=== PATIENT | male | born 1935 | race Caucasian/White ===

== ENCOUNTER 2018-09-28 12:29 | Emergency (ER) | payer MEDICARE ==
[2018-09-28 12:48] LABS: #Basophils 0.1 thou/uL (0.0-0.2); #Eosinphils 0.1 thou/uL (0.0-0.7); #Lymphocytes 1.7 thou/uL (1.20-3.40); #Monocytes 0.4 thou/uL (0.11-0.59); #Neutrophils 4.5 thou/uL (1.40-6.50); %Eosinophils 1.7 % (0.0-10.0); %Lymphocytes 24.8 % (21.0-51.0); %Monocytes 5.7 % (0.0-10.0); %Neutrophils 66.9 % (42.0-75.0); Hemoglobin 13.2 g/dL (14.0-18.0); Mean Corpuscular HGB CONC 32.8 g/dL (32.0-36.0); Mean Corpuscular Hemoglobin 32.3 pg (27.0-31.0); Mean Corpuscular Volume 98.4 fL (78.0-98.0); Mean Platelet Volume 7.6 fL (7.4-10.4); Platelet Count 196 thou/uL (130-400); RBC Distribution Width 12.7 % (11.5-14.5); Red Blood Cell (RBC) Count 4.08 mill/uL (4.70-6.10); White Blood Cell (WBC) Count 6.8 thou/uL (4.8-10.8)
--- NOTE | 2018-09-28 12:53 | RAD ---
Exam: Chest one view HISTORY:Palpitation Comparison: 02/23/2016 FINDINGS: Cardiac silhouette:Normal heart size. Sternotomy wires are noted. Pulmonary vessels: Normal Costophrenic angles: Clear LUNGS: No masses or consolidation. Chronic changes of the lung parenchyma are identified. Pneumothorax: None Osseous abnormalities: None IMPRESSION: No acute cardiopulmonary process.
[2018-09-28 13:10] LABS: ALT (SGPT) 15 U/L (8-55); AST (SGOT) 15 U/L (5-34); Albumin 4.4 g/dL (3.4-4.8); Alkaline Phosphatase 83 U/L (40-150); Anion Gap 13 mmol/L (10-20); BUN (Urea Nitrogen) 27 mg/dL (8.4-25.7); Bilirubin, Total 0.5 mg/dL (0.2-1.2); Calc. Creatinine Clearance 0 mL/min (70-130); Calcium 9.6 mg/dL (7.8-10.44); Carbon Dioxide 27 mmol/L (23-31); Chloride 103 mmol/L (98-107); Estimated GFR-MDRD 65; Globulin 3.2 g/dL (2.4-3.5); Glucose 149 mg/dL (83-110); Potassium 4.4 mmol/L (3.5-5.1); Protein, Total 7.6 g/dL (5.8-8.1); Sodium 139 mmol/L (136-145)
== END 2018-09-28 15:20 | disposition home or self-care (01) ==
LOC: ERS 12:29
DX: E86.0 Dehydration (principal); R00.2 Palpitations; I25.2 Old myocardial infarction; E11.9 Type 2 diabetes mellitus without complications; Z79.4 Long term (current) use of insulin; Z79.82 Long term (current) use of aspirin; Z79.899 Other long term (current) drug therapy
CPT/HCPCS: 71045; 80053; 84484; 85025; 93005; 94760; 96360; 96361

== ENCOUNTER 2018-10-23 09:34 | Day surgery (SDC) | payer MEDICARE ==
[2018-10-22 12:25] VITALS: BMI 26.5
[2018-10-23] MEDS ORDERED: Heparin 10,000 UNITS/1 ML VIAL ONE (09:37)
[2018-10-23 10:25] LABS: #Eosinphils 0.1 thou/uL (0.0-0.7); #Lymphocytes 1.3 thou/uL (1.20-3.40); #Monocytes 0.3 thou/uL (0.11-0.59); #Neutrophils 2.8 thou/uL (1.40-6.50); %Basophils 0.4 % (0.0-1.0); %Eosinophils 1.8 % (0.0-10.0); %Lymphocytes 29.5 % (21.0-51.0); %Monocytes 7.4 % (0.0-10.0); Hemoglobin 12.1 g/dL (14.0-18.0); Mean Corpuscular HGB CONC 32.6 g/dL (32.0-36.0); Mean Corpuscular Hemoglobin 32.5 pg (27.0-31.0); Mean Corpuscular Volume 99.7 fL (78.0-98.0); Mean Platelet Volume 7.3 fL (7.4-10.4); Platelet Count 165 thou/uL (130-400); RBC Distribution Width 12.6 % (11.5-14.5); Red Blood Cell (RBC) Count 3.71 mill/uL (4.70-6.10); White Blood Cell (WBC) Count 4.6 thou/uL (4.8-10.8)
[2018-10-23 10:31] LABS: INR-International Normal Ratio 1.2; PTT 36.8 SEC (22.9-36.1); Prothrombin Time 15.5 SEC (12.0-14.7)
[2018-10-23 10:48] LABS: Anion Gap 10 mmol/L (10-20); BUN (Urea Nitrogen) 17 mg/dL (8.4-25.7); Calc. Creatinine Clearance 70 mL/min (70-130); Calcium 9.2 mg/dL (7.8-10.44); Carbon Dioxide 28 mmol/L (23-31); Chloride 105 mmol/L (98-107); Estimated GFR-MDRD 75; Glucose 186 mg/dL (83-110); Potassium 4.3 mmol/L (3.5-5.1); Sodium 139 mmol/L (136-145)
[2018-10-23] MEDS ORDERED: Lidocaine 1% (PF) 30 ML VIAL ONE (10:49)
[2018-10-23] MEDS ORDERED: Fentanyl 250 MCG/5 ML VIAL ONE (10:50)
[2018-10-23] MEDS ORDERED: Propofol 1,000 MG/100 ML VIAL IV ONE (10:50)
[2018-10-23] MEDS ORDERED: DOPamine 400 MG/D5W 250 ML 250 ML ONE (11:31)
--- NOTE | 2018-10-23 12:43 | ECHO ---
DATE OF SERVICE: 10/23/18 REFERRING PHYSICIAN: Dr. Ida Moctezuma REASON FOR PROCEDURE: The patient is an 83-year-old gentleman with history of constant atrial flutter. Underwent CTA ablation in February 2016 with recurrent atrial flutter. Has just been started on anticoagulation here for CARMINE to rule out intracardiac clots. PROCEDURE: The patient received Propofol by Anesthesia specialist. After adequate level of sedation achieved, a standard transesophageal echocardiogram probe was passed into the esophagus without difficulty. Patient tolerated the procedure well, no complications noted. RESULTS: Left atrium is moderately enlarged about 5.4 cm in horizontal diameter. The left atrial appendage well visualized contains no clots. The left appendage velocities of about 30 to 50 cm per second. Four out of four pulmonary veins were clearly visualized. The left ventricular systolic function is preserved. The mitral valve has mild regurgitation. Tricuspid valve also has mild regurgitation. No aortic regurgitation is seen. Three leaflets visualized. No stenosis is noted. The pulmonary valve is borderline visualized and appears to be normal. Pericardial space without effusion. The visualized portion of ascending and descending aorta without aneurysm, dissection or significant atheroma. Interatrial septal is with minor communication via a tiny PFO. Color Flow is visible in between the flap and roof of the left atrium only left to right. CONCLUSION: 1. No intracardiac clots. 2. Borderline left atrial enlargement. 3. Normal left ventricular systolic function. 4. Mild MR and TR. 5. 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 PLAN: Proceed with ablation. [facility]
[2018-10-23] MEDS ORDERED: Fentanyl 100 MCG/2 ML VIAL ONE (14:07)
--- NOTE | 2018-10-24 10:07 | OP ---
DATE OF PROCEDURE: 10/23/2018 PROCEDURES PERFORMED: Electrophysiology study and radiofrequency ablation. REASON FOR PROCEDURE: Mr. Kelley is an 83-year-old man with history of prior flutter ablation in the past, now with recurrent typical appearing atrial flutter. CARMINE prior to the procedure demonstrates no intracardiac clots. DESCRIPTION OF PROCEDURE: The patient received propofol by Anesthesia specialist for deep sedation. After adequate level of sedation achieved, the right femoral venous area was prepped, draped, and anesthetized using subcutaneous lidocaine and under ultrasound guidance, two 8-Albanian short sheaths were introduced. Through this, a ThermoCool SFST catheter was advanced to the right atrium, His bundle, CS, and RV locations for 3D map was obtained of the right atrium with this catheter. Pacing mapping and recording were performed in each location, after insertion of a decapolar catheter into the CS, RV, and His bundle position. Following that, the following findings were noted; HV 45 milliseconds, baseline atrial fluttere cycle length of 280 milliseconds with variable AV conduction. At baseline, typical atrial flutter was seen during catheter manipulation. The atrial flutter, although terminated and was not inducible later. Proximal CS pacing map was obtained after entrainment short proximal to distal intervals at the base of the cavotricuspid isthmus adjacent to the IVC. Otherwise, suction prolongation of the transisthmus times were seen. Radiofrequency ablation was performed at the proximal CTI area, where the closely coupled proximal to distal signals were seen with low amplitude conduction signals were seen in between. A total of four lesions delivered at 4 minutes and 32 seconds. Additional lesions were delivered lateral to the prior ablation line. Following that, the lines were rechecked and repeat attempts were made to reinduce the atrial flutter, but it was not successful. To reinduce any atrial arrhythmias, no atrial fibrillation was seen either. Dopamine was administered and the patency of the cavotricuspid isthmus line was rechecked and any reconnections reablated. At the end of the case, cardiac silhouette did not reveal change. Catheter was pulled from the body and the sheaths were removed. Manual pressure was applied to achieve hemostasis. CONCLUSION: 1. Typical appearing isthmus dependent atrial flutter. 2. Successful repeat cavotricuspid isthmus ablation. 3. No inducible arrhythmias after the ablation. 4. Normal sinus node recovery time and AV sonali function noted pre and post ablation. 5. No evidence of dual AV sonali physiology. 6. No accessory pathway is noted. Job ID: [id number] [facility]
--- NOTE | 2018-10-25 08:11 | EKG ---
Test Reason : PREOP ABLATION Blood Pressure : / mmHG Vent. Rate : 104 BPM Atrial Rate : 105 BPM P-R Int : 000 ms QRS Dur : 136 ms QT Int : 378 ms P-R-T Axes : 000 030 003 degrees QTc Int : 497 ms Wide QRS rhythm Right bundle branch block T wave abnormality, consider inferior ischemia Abnormal ECG When compared with ECG of 28-SEP-2018 12:36, Wide QRS rhythm has replaced Sinus rhythm Confirmed by DR. Ken OSORIO ([id number]) on 10/25/2018 8:11:02 AM Referred By: MELO Confirmed By:DR. Ken OSORIO
== END 2018-10-23 17:32 | disposition home or self-care (01) ==
LOC: CCL 09:34
PROVIDERS: ATTEND Internal Medicine Cardiovascular Disease
PROC: B245ZZ4 Ultrasonography of Left Heart, Transesophageal (ICD-10-PCS; principal; 2018-10-23)
DX: I48.3 Typical atrial flutter (principal); I45.10 Unspecified right bundle-branch block; I25.10 Atherosclerotic heart disease of native coronary artery without angina pectoris; I10 Essential (primary) hypertension; E11.9 Type 2 diabetes mellitus without complications; E78.5 Hyperlipidemia, unspecified; Z79.01 Long term (current) use of anticoagulants; Z79.899 Other long term (current) drug therapy; Z88.8 Allergy status to other drugs, medicaments and biological substances; Z95.1 Presence of aortocoronary bypass graft
CPT/HCPCS: 76942; 80048; 85025; 85610; 85730; 93005; 93010; 93312; 93613; 93621; 93623; 93653; C1730; C1732; C1769; J1265; J1644; J2001; J2704; J3010

== ENCOUNTER 2024-03-04 12:19 | Emergency (ER) | payer MEDICARE ==
[2024-03-04 13:04] LABS: #Basophils 0.05 10x3/uL (0.0-0.2); #Eosinophils Less than 0.03 10x3/uL (0.0-0.7); %Basophils 0.9 % (0.0-1.0); %Eosinophils 0.4 % (0.0-10.0); %Monocytes 6.9 % (0.0-10.0); %Neutrophils 74.1 % (42.0-75.0); Hemoglobin 12.7 g/dL (14.0-18.0); Mean Corpuscular HGB CONC 32.6 g/dL (32.0-36.0); Mean Corpuscular Hemoglobin 31.9 pg (27.0-31.0); Mean Platelet Volume 9.2 fL (7.4-10.4); Platelet Count 204 10x3/uL (130-400); RBC Distribution Width 12.7 % (11.5-14.5); Red Blood Cell (RBC) Count 3.98 mill/uL (4.70-6.10)
[2024-03-04 13:21] LABS: ALT (SGPT) 15 U/L (8-55); AST (SGOT) 14 U/L (5-34); Albumin 3.7 g/dL (3.4-4.8); Alkaline Phosphatase 72 U/L (40-110); Anion Gap 15 mmol/L (10-20); BUN (Urea Nitrogen) 16 mg/dL (8.4-25.7); Bilirubin, Total 0.7 mg/dL (0.2-1.2); Calc. Creatinine Clearance 0 mL/min (70-130); Calcium 9.1 mg/dL (7.8-10.44); Carbon Dioxide 25 mmol/L (23-31); Chloride 99 mmol/L (98-107); Estimated GFR 70; Globulin 3.5 g/dL (2.4-3.5); Glucose 339 mg/dL (83-110); Lipase 19 U/L (8-78); Potassium 4.9 mmol/L (3.5-5.1); Protein, Total 7.2 g/dL (5.8-8.1); Sodium 134 mmol/L (136-145)
[2024-03-04 13:27] LABS: Troponin I 0.047 ng/mL (< 0.028)
== END 2024-03-04 13:51 | disposition left against medical advice (07) ==
LOC: ERS 12:19
DX: Z53.21 Procedure and treatment not carried out due to patient leaving prior to being seen by health care provider (principal)
CPT/HCPCS: 36415; 80053; 83690; 84484; 85025